=== PATIENT | female | born 1985 | race Caucasian/White ===

== ENCOUNTER 2017-07-08 02:04 | Emergency (ER) | payer MEDICAID ==
[~2017-07-08] VITALS: Ht 160 cm; Wt 81.6 kg
[2017-07-08 02:04] VITALS: BP_SYST 116
== END 2017-07-08 02:17 ==
LOC: SED 02:04
DX: Z02.89 Encounter for other administrative examinations (principal); L93.0 Discoid lupus erythematosus; B19.20 Unspecified viral hepatitis C without hepatic coma; Z88.0 Allergy status to penicillin
CPT/HCPCS: 99283